=== PATIENT | female | born 1960 | race Caucasian/White ===

== ENCOUNTER → 2017-07-12 | Outpatient (CLI) | payer BC ==
--- NOTE | 2017-07-14 08:25 | MM ---
Reason for exam: screening (asymptomatic). Last mammogram was performed 1 year and 4 months ago. History: Patient is postmenopausal and is nulliparous. Family history of breast cancer in maternal aunt. Benign excisional biopsy of the left breast, 1993. Took estrogen for 10 years. Physical Findings: A clinical breast exam by your physician is recommended on an annual basis and results should be correlated with mammographic findings. MG Screening Mammo w CAD Bilateral CC and MLO view(s) were taken. Prior study comparison: March 12, 2016, bilateral MG screening mammo w CAD. March 11, 2015, bilateral MG screening mammo w CAD. September 25, 2013, bilateral digital screening mammo w/CAD. The breast tissue is heterogeneously dense. This may lower the sensitivity of mammography. No suspicious abnormality. No significant changes when compared with prior studies. ASSESSMENT: Negative, BI-RAD 1 RECOMMENDATION: Routine screening mammogram of both breasts in 1 year.
== END | disposition home or self-care (01) ==
LOC: RADMAMWWP 15:53
PROVIDERS: ATTEND Family Medicine
DX: Z12.31 Encounter for screening mammogram for malignant neoplasm of breast (principal)

== ENCOUNTER → 2018-06-19 | Outpatient (CLI) | payer BC ==
--- NOTE | 2018-06-19 13:23 | XR ---
EXAMINATION TYPE: XR IVP DATE OF EXAM: 06/19/2018 COMPARISON: NONE HISTORY: Difficulty urinating TECHNIQUE: Following intravenous administration of 75 cc Omnipaque 300, multiple spot images are obta ined. The preliminary film of the abdomen reveals no significant abnormality. No definite nephrolithiasis i s seen. Calcifications in the pelvis are likely vascular. Hypertrophic change of the spine noted. Following intravenous administration of contrast material, sequential films of the abdomen were obtai enedelia. There is prompt and symmetrical excretion of the contrast by both kidneys which demonstrate nor mal size and configuration. The collecting systems and visualized portions of the ureters reveal no abnormality. There is mild asymmetry in the size of the renal pelvis greater on the right. No hydrou reter. A been the basis of an extrarenal pelvis. 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 Calcifications in the pelvis appear to be outside the course of the right ureter. The bladder demonst rates a small degree of mass effect along the inferior margin of the bladder.. Small post void residu al noted. There is gradual accumulation of contrast material in the urinary bladder showing no gross abnormality. The post-voiding film shows minimal residual contrast in the collecting systems and uri nary bladder. IMPRESSION: 1. Bladder demonstrates no definite filling defect and there is a small post void residual. There perez s appear to be a mild mass effect along the inferior margin of the bladder which is felt to be extral uminal. Correlation with cystoscopy could be performed as clinically warranted.
== END ==
LOC: RADFLMAIN 09:07
PROVIDERS: ATTEND Family Medicine
DX: R39.198 Other difficulties with micturition (principal); R93.49 Abnormal radiologic findings on diagnostic imaging of other urinary organs
CPT/HCPCS: 74400; Q9967

== ENCOUNTER → 2018-11-20 | Outpatient (CLI) | payer BC ==
--- NOTE | 2018-11-20 12:23 | MM ---
Reason for exam: clinical finding. Last mammogram was performed 1 year and 4 months ago. History: Patient is postmenopausal and is nulliparous. Family history of breast cancer in maternal aunt. Benign excisional biopsy of the left breast, 1993. Took hormonal contraceptives for 5 years. 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 MG Diagnostic Mammo w CAD [facility] Bilateral CC and MLO view(s) were taken. Prior study comparison: July 12, 2017, bilateral MG screening mammo w CAD. March 12, 2016, bilateral MG screening mammo w CAD. The breast tissue is heterogeneously dense. This may lower the sensitivity of mammography. Focal asymmetry left upper outer quadrant, slightly increased from prior. This finding is changed when compared with previous exams. These results were verbally communicated with the patient and result sheet given to the patient on 11/20/18. ASSESSMENT: Incomplete: need additional imaging evaluation, BI-RAD 0 RECOMMENDATION: Ultrasound of the left breast. (upper outer quadrant) Manage on a clinical basis with regard to fullness left upper outer quadrant.
--- NOTE | 2018-11-20 12:24 | USB ---
Reason for exam: additional evaluation requested from abnormal screening. History: Patient is postmenopausal and is nulliparous. Family history of breast cancer in maternal aunt. Benign excisional biopsy of the left breast, 1993. Took hormonal contraceptives for 5 years. US Breast Limited LT Left limited breast ultrasound including focal area of concern, retroareolar and axilla demonstrates no cystic or solid lesion seen. These results were verbally communicated with the patient and result sheet given to the patient on 11/20/18. ASSESSMENT: Negative, BI-RAD 1 RECOMMENDATION: Routine screening mammogram of both breasts in 1 year. Manage patient on a clinical basis.
== END ==
LOC: RADMAMWWP 10:52
PROVIDERS: ATTEND Family Medicine
DX: N64.4 Mastodynia (principal)
CPT/HCPCS: 77066

== ENCOUNTER → 2020-06-30 | Outpatient (CLI) | payer BC ==
--- NOTE | 2020-07-01 11:56 | MM ---
Reason for exam: screening (asymptomatic). Last mammogram was performed 1 year and 7 months ago. History: Patient is postmenopausal and is nulliparous. Family history of breast cancer in maternal aunt. Benign excisional biopsy of the left breast, 1993. Took hormonal contraceptives for 5 years. Physical Findings: A clinical breast exam by your physician is recommended on an annual basis and results should be correlated with mammographic findings. MG Screening Mammo w CAD Bilateral CC and MLO view(s) were taken. Prior study comparison: November 20, 2018, bilateral MG diagnostic mammo w CAD [facility]. July 12, 2017, bilateral MG screening mammo w CAD. The breast tissue is heterogeneously dense. This may lower the sensitivity of mammography. Finding: There is a 5 mm equal density (isodense), obscured mass in the subareolar position of the right breast. ASSESSMENT: Incomplete: need additional imaging evaluation, BI-RAD 0 RECOMMENDATION: Special view mammogram of the right breast. If lesion persists on supplemental views, image directed ultrasound is recommended. [facility] will attempt to contact patient to return for supplemental views and ultrasound if indicated.
== END | disposition home or self-care (01) ==
LOC: RADMAMWWP 10:41
PROVIDERS: ATTEND Family Medicine
DX: Z12.31 Encounter for screening mammogram for malignant neoplasm of breast (principal)
CPT/HCPCS: 77067

== ENCOUNTER → 2021-10-06 | Outpatient (CLI) | payer BC ==
--- NOTE | 2021-10-08 14:13 | MM ---
Reason for exam: screening (asymptomatic). Last mammogram was performed 1 year and 3 months ago. History: Patient is postmenopausal and is nulliparous. Family history of breast cancer in maternal aunt at age 60. Benign excisional biopsy of the left breast, 1993. Took hormonal contraceptives for 5 years. Took estrogen for 2 years beginning at age 30. Took progesterone for 2 years beginning at age 30. Physical Findings: A clinical breast exam by your physician is recommended on an annual basis and results should be correlated with mammographic findings. MG Screening Mammo w CAD Bilateral CC and MLO view(s) were taken. Prior study comparison: June 30, 2020, bilateral MG screening mammo w CAD. November 20, 2018, bilateral MG diagnostic mammo w CAD [facility]. July 12, 2017, bilateral MG screening mammo w CAD. The breast tissue is heterogeneously dense. This may lower the sensitivity of mammography. No significant changes when compared with prior studies. ASSESSMENT: Benign, BI-RAD 2 RECOMMENDATION: Routine screening mammogram of both breasts in 1 year.
== END | disposition home or self-care (01) ==
LOC: RADMAMWWP 09:29
PROVIDERS: ATTEND Family Medicine
DX: Z12.31 Encounter for screening mammogram for malignant neoplasm of breast (principal); Z80.3 Family history of malignant neoplasm of breast; Z78.0 Asymptomatic menopausal state
CPT/HCPCS: 77067

== ENCOUNTER → 2022-10-07 | Outpatient (CLI) | payer BC ==
--- NOTE | 2022-10-10 13:00 | MM ---
Reason for Exam: Screening (asymptomatic). Last screening mammogram was performed 12 month(s) ago. Patient History: Menarche at age 14. Patient has no children. Left ovary removed at age 30. Right ovary removed at age 30. Hysterectomy at age 30. Postmenopausal. Estrogen, starting at age 30 for 2 years. Progesterone, starting at age 30 for 2 years. Patient used Hormonal Contraceptives for 5 years. 1993, Benign Excisional Biopsy on the left side. Maternal aunt had breast cancer, age 60. Maternal cousin had breast cancer, age 68. Sister had breast cancer, age 65. Sister had ovarian cancer, age 40. Risk Values: Isela 5 year model risk: 3.1%. NCI Lifetime model risk: 14.5%. Prior Study Comparison: 06/30/2020 Bilateral Screening Mammogram, [facility]. 07/03/2020 Right Diagnostic Mammogram, [facility]. 10/06/2021 Bilateral Screening Mammogram, [facility]. Tissue Density: The breast tissue is heterogeneously dense. This may lower the sensitivity of mammography. Findings: Analyzed By CAD. Chronic nodularity on the right. There is no suspicious group of microcalcifications or new suspicious mass in either breast. Overall Assessment: Benign, BI-RAD 2 Management: Screening Mammogram of both breasts in 1 year. 1. Patient should continue monthly self breast exams. 2. A clinical breast exam by your physician is recommended on an annual basis. 3. This exam should not preclude additional follow-up of suspicious palpable abnormalities. Electronically signed and approved by: Katarina Castro M.D. Radiologist
== END | disposition home or self-care (01) ==
LOC: RADMAMWWP 13:00
PROVIDERS: ATTEND Family Medicine
DX: Z12.31 Encounter for screening mammogram for malignant neoplasm of breast (principal); Z78.0 Asymptomatic menopausal state; Z80.3 Family history of malignant neoplasm of breast; Z80.41 Family history of malignant neoplasm of ovary
CPT/HCPCS: 77063; 77067

== ENCOUNTER → 2023-02-03 | Outpatient (CLI) | payer BC ==
--- NOTE | 2023-02-03 13:52 | US ---
EXAMINATION TYPE: US abdomen complete DATE OF EXAM: 02/03/2023 COMPARISON: NONE CLINICAL INDICATION: Female, 62 years old with history of R10.817 GENERALIZED ABDOMINAL TENDERNESS; p ain TECHNIQUE: Multiple sonographic images of the abdomen are obtained. FINDINGS: EXAM MEASUREMENTS: Liver Length: 13.6 cm Gallbladder Wall: .2 cm CBD: .5 cm Spleen: 8.7 cm Right Kidney: 10.7 x 4.3 x 5.2 cm Left Kidney: 10.5 x 5.4 x 3.9 cm Pancreas: Tail obscured by overlying bowel gas Liver: Relatively normal homogeneous appearance. No focal lesion seen. Gallbladder: No stones seen Evidence for sonographic Pan's sign: No CBD: wnl Spleen: Limited due to bowel gas. Right Kidney: No hydronephrosis or masses seen Left Kidney: No hydronephrosis or masses seen Upper IVC: wnl Abd Aorta: wnl IMPRESSION: Suboptimal visualization the pancreas. Otherwise, unremarkable sonographic examination of the abdomen .
== END | disposition home or self-care (01) ==
LOC: RADUSWWP 08:17
PROVIDERS: ATTEND Family Medicine
DX: R10.817 Generalized abdominal tenderness (principal)
CPT/HCPCS: 76700

== ENCOUNTER → 2023-10-14 | Outpatient (CLI) | payer BC ==
--- NOTE | 2023-10-14 09:16 | CTL ---
EXAMINATION TYPE: CT Low Dose Lung DATE OF EXAM ORDERED: 10/14/2023 HISTORY: Long-term tobacco use . Lung cancer screening CT DLP: 92.[address] CTDI: 2.4 mGy Automated exposure control for dose reduction was used. SCREENING VISIT: Baseline COMPARISON: None TECHNIQUE: Low dose computed tomography scan was performed through the chest at 1 mm thick sections a nd reconstructed images in multiple planes at 1 mm and [address] DIAGNOSTIC QUALITY: Satisfactory FINDINGS: LUNG NODULES: Present, detailed below: Few scattered small nodules. For reference is a 5 x 4 mm posterior right upper lobe nodule on axial i mage 92. No greater than 6 mm pulmonary nodules. LUNGS: COPD: Severity: None Fibrosis: Severity: None Lymph nodes: None Other findings: None RIGHT PLEURAL SPACE: Effusion: None Calcification: None Thickening: None Pneumothorax: None LEFT PLEURAL SPACE: Effusion: None Calcification: None Thickening: None Pneumothorax: None HEART: Heart Size: Normal Coronary Calcification: None Pericardial Effusion: None OTHER FINDINGS: Upper abdomen: None Bony thorax: None Supraclavicular region: None Other: None IMPRESSION: A few tiny nodules. No significant pulmonary nodules. CT LUNG RAD AND CT CHEST RECOMMENDATION: Lung-Rad 2 Benign Appearance or Behavior: Continue annual sc reening with LDCT in 12 months. S Modifier (other clinically significant findings): None
== END | disposition home or self-care (01) ==
LOC: RADCTMAIN 08:38
PROVIDERS: ATTEND Family Medicine
DX: Z12.2 Encounter for screening for malignant neoplasm of respiratory organs (principal); R91.8 Other nonspecific abnormal finding of lung field; F17.210 Nicotine dependence, cigarettes, uncomplicated
CPT/HCPCS: 71271

== ENCOUNTER → 2023-10-14 | Outpatient (CLI) | payer BC ==
--- NOTE | 2023-10-14 13:15 | MM ---
Reason for Exam: Screening (asymptomatic). Last mammogram was performed 1 year(s) and 1 month(s) ago. Patient History: Menarche at age 14. Patient has no children. Left ovary removed at age 30. Right ovary removed at age 30. Hysterectomy at age 30. Postmenopausal. Estrogen, starting at age 30 for 2 years. Progesterone, starting at age 30 for 2 years. Patient used Hormonal Contraceptives for 5 years. 1993, Benign Excisional Biopsy on the left side. Maternal aunt had breast cancer, age 60. Maternal cousin had breast cancer, age 68. Sister had breast cancer, age 65. Sister had ovarian cancer, age 40. Risk Values: Isela 5 year model risk: 3.2%. NCI Lifetime model risk: 14.1%. Prior Study Comparison: 07/03/2020 Right Diagnostic Mammogram, [facility]. 10/06/2021 Bilateral Screening Mammogram, [facility]. 10/07/2022 Bilateral MG 3D screening mammo w/cad, [facility]. Tissue Density: There are scattered fibroglandular densities. Findings: Analyzed By CAD. There is no suspicious group of microcalcifications or new suspicious mass. Overall Assessment: Negative, BI-RAD 1 Management: Screening Mammogram of both breasts in [address] [facility] will attempt to contact patient to return for supplemental views and ultrasound if indicated. Patient should continue monthly self-breast exams. A clinical breast exam by your physician is recommended on an annual basis. This exam should not preclude additional follow-up of suspicious palpable abnormalities. Note on Isela scores and lifetime risk: 1. A Isela score greater than 3% is considered moderate risk. If this is the case, consider specialist referral to assess eligibility for a risk reducing agent. 2. If overall lifetime risk for the development of breast cancer is 20% or higher, the patient may qualify for future screening with alternating mammogram and breast MRI. Electronically signed and approved by: Cristian Felder DO
== END | disposition home or self-care (01) ==
LOC: RADMAMWWP 09:00
PROVIDERS: ATTEND Family Medicine
DX: Z12.31 Encounter for screening mammogram for malignant neoplasm of breast (principal); Z78.0 Asymptomatic menopausal state; Z80.3 Family history of malignant neoplasm of breast
CPT/HCPCS: 77063; 77067